=== PATIENT | female | born 1980 | race Caucasian/White ===

== ENCOUNTER 2023-10-26 16:08 | Outpatient (CLI) | payer BC, SELFPAY ==
[2023-10-26 16:29] LABS: Basophils # 0.1 K/mm3 (0-0.2); Basophils % 1.3 % (0.1-2.0); Eosinophils # 0.2 K/mm3 (0.0-0.4); Eosinophils % 3.8 % (0.1-12.0); Hematocrit 41.9 % (37.0-47.0); Lymphocytes # 2.2 K/mm3 (0.7-4.5); Lymphocytes % 40.9 % (10-50); Mean Corpuscular HGB Conc 33.3 g/dL (31.8-35.4); Mean Corpuscular Hemoglobin 30.9 pg (27.0-31.2); Mean Corpuscular Volume 92.5 fl (81-99); Mean Platelet Volume 7.4 fl (7.4-10.4); Monocytes # 0.2 K/mm3 (0.1-1.0); Neutrophils # 2.7 K/mm3 (1.8-7.8); Platelet Count 292 K/mm3 (142-424); Red Blood Count 4.53 M/mm3 (4.20-5.40); Red Cell Distribution Width 13.8 % (11.5-17.5); White Blood Count 5.5 K/mm3 (4.8-10.8)
[2023-10-26 16:48] LABS: Chloride 105 mmol/L (98-107)
[2023-10-26 16:49] LABS: Potassium 3.5 mmoL/L (3.5-5.1); Sodium 138 mmol/L (136-145)
[2023-10-26 16:51] LABS: Alanine Aminotransferase 28 U/L (12-78); Albumin Level 3.7 g/dl (3.5-5.0); Alkaline Phosphatase 81 U/L (38-126); Anion Gap 6.5 mEq/L (5-15); Aspartate Amino Transferase 45 U/L (14-36); Bilirubin,Direct 0.2 mg/dl (0.0-0.4); Bilirubin,Indirect 0.5 mg/dL (0.0-0.9); Bilirubin,Total 0.7 mg/dl (0.2-1.3); Bilirubin,Unconjugated 0.4 mg/dL (0.0-1.1); Blood Urea Nitrogen 18 mg/dl (7-17); Calcium 8.9 mg/dl (8.4-10.2); Carbon Dioxide 30 mmol/L (22.0-30.0); Cholesterol 214 mg/dl (140-200); Estimated Glomerular Filt Rate 68 ml/min (>60); GFR (African American) 82 ML/MIN (>60); Glucose 90 mg/dl (74-100); Total Protein,Serum 6.7 g/dl (6.3-8.2); Total Protein,Urine Random < 5.0 mg/dL (0.0-12.0); Triglycerides 182 mg/dl (30-150); VLDL Cholesterol 36 mg/dL (0-40)
[2023-10-26 16:52] LABS: Chol/HDL Ratio 3.8 (1-3.5); HDL Cholesterol 57 mg/dl (40-60)
[2023-10-26 17:03] LABS: Direct LDL Cholesterol 106.87 mg/dL (100-129)
[2023-10-26 17:06] LABS: Free T4 (Free Thyroxine) 0.69 ng/dl (0.78-2.19)
== END 2023-10-26 23:59 | disposition home or self-care (01) ==
LOC: LAB 16:11
PROVIDERS: Visit Provider Internal Medicine
DX: I10 Essential (primary) hypertension (principal); R60.0 Localized edema; R94.31 Abnormal electrocardiogram [ECG] [EKG]; Z79.899 Other long term (current) drug therapy; E78.49 Other hyperlipidemia
CPT/HCPCS: 36415; 80048; 80061; 80076; 83735; 84156; 84439; 84443; 85025

== ENCOUNTER 2023-11-10 15:13 | Outpatient (CLI) | payer BC, SELFPAY | END 2023-11-10 23:59 | disposition home or self-care (01) | LOC: RT 15:15 | PROVIDERS: Visit Provider Internal Medicine | DX: R94.31 Abnormal electrocardiogram [ECG] [EKG] (principal); R60.0 Localized edema; I10 Essential (primary) hypertension; E78.49 Other hyperlipidemia | CPT/HCPCS: 93306 ==